=== PATIENT | male | born 1975 | race Caucasian/White ===

== ENCOUNTER → 2017-02-17 | Outpatient (CLI) | payer MEDICAID ==
--- NOTE | 2017-02-17 15:24 | US ---
EXAMINATION TYPE: US venous doppler duplex LE BI DATE OF EXAM: 02/17/2017 2:43 PM COMPARISON: NONE CLINICAL HISTORY: 41-year-old male Muscle Weakness M62.81,R06.09 Dyspnea. Muscle weakness SIDE PERFORMED: Bilateral TECHNIQUE: The lower extremity deep venous system is examined utilizing real time linear array sonog melany with graded compression, doppler sonography and color-flow sonography. FINDINGS: VESSELS IMAGED: External Iliac Vein (EIV) Common Femoral Vein Deep Femoral Vein Greater Saphenous Vein * Femoral Vein Popliteal Vein Small Saphenous Vein * Proximal Calf Veins (* superficial vessels) Right Leg: Appears negative for DVT Left Leg: Appears negative for DVT IMPRESSION: No evidence for DVT within the bilateral lower extremities imaged from the groin to the upper calves.
--- NOTE | 2017-02-18 08:27 | ECHOF ---
Referral Reason:Muscle Weakness M62.81,R06.09 Dyspnea MEASUREMENTS -------- HEIGHT: 177.8 cm WEIGHT: 81.6 kg BP: 141/86 RVIDd: 3.2 cm (< 3.3) IVSd: 1.2 cm (0.6 - 1.1) LVIDd: 5.1 cm (3.9 - 5.3) LVPWd: 1.2 cm (0.6 - 1.1) IVSs: 1.7 cm LVIDs: 3.7 cm LVPWs: 1.7 cm LAESV Index (A-L): 23.15 ml/m Ao Diam: 3.4 cm (2.0 - 3.7) AV Cusp: 1.8 cm (1.5 - 2.6) LA Diam: 3.5 cm (2.7 - 3.8) MV EXCURSION: 22.907 mm (> 18.000) MV EF SLOPE: 155 mm/s (70 - 150) EPSS: 0.8 cm MV E Min: 0.86 m/s MV DecT: 234 ms MV A Min: 0.51 m/s MV E/A Ratio: 1.70 RAP: 5.00 mmHg RVSP: 15.42 mmHg FINDINGS -------- Resting bradycardia (HR<60bpm). This was a technically good study. The left ventricular size is normal. Left ventricular wall thickness is normal. Overall left ventricular systolic function is normal with, an EF between 60 - 65 %. The right ventricle is mildly enlarged. Normal LA size by volume 22+/-6 ml/m2. RA appears enlarged. The aortic valve is trileaflet, and appears structurally normal. No aortic stenosis or regurgitation. The mitral valve is normal. There is trace mitral regurgitation. Trace tricuspid regurgitation present. Right ventricular systolic pressure is normal at < 35 mmHg. There is no evidence of pulmonary hypertension. Trace/mild (physiologic) pulmonic regurgitation. The aortic root size is normal. Normal inferior vena cava with normal inspiratory collapse consistent with estimated right atrial pressure of 5 mmHg. The pericardium is normal. There is no pericardial effusion. CONCLUSIONS -------- 1. Resting bradycardia (HR<60bpm). 2. Trace tricuspid regurgitation present. 3. Right ventricular systolic pressure is normal at < 35 mmHg. 4. There is no evidence of pulmonary hypertension. 5. Trace/mild (physiologic) pulmonic regurgitation. 6. The aortic root size is normal. 7. There is no pericardial effusion. 8. This was a technically good study. 9. The left ventricular size is normal. 10. Overall left ventricular systolic function is normal with, an EF between 60 - 65 %. 11. The right ventricle is mildly enlarged. 12. Normal LA size by volume 22+/-6 ml/m2. 13. RA appears enlarged. 14. The aortic valve is trileaflet, and appears structurally normal. No aortic stenosis or regurgitation. 15. There is trace mitral regurgitation. AUTO BODY REPAIR TEACHER: Eros Nichols RDCS
--- NOTE | 2017-02-19 10:31 | P.ARTDOP ---
Arterial Doppler LOWER EXTREMITY ARTERIAL DOPPLER: DATE OF SERVICE: 02/17/2017 Reason for study: Lower extremity weakness. Doppler waveforms: Multiphasic bilaterally throughout. Pulse volume recording: Normal configuration. Pressure gradients: None. Ankle-brachial indices: Greater than 1 bilaterally. Toe pressures: 95 on the right, 124 on the left Impression: Normal study.
== END | disposition home or self-care (01) ==
LOC: RADUSWWP 14:10
PROVIDERS: ATTEND Family Medicine
DX: I37.1 Nonrheumatic pulmonary valve insufficiency (principal); M62.81 Muscle weakness (generalized); R06.09 Other forms of dyspnea; R53.83 Other fatigue; R53.81 Other malaise; R42 Dizziness and giddiness
CPT/HCPCS: 93306; 93923; 93970

== ENCOUNTER 2019-08-02 09:08 | Day surgery (SDC) | payer MEDICAID ==
[2019-07-28 15:42] VITALS: BMI 25.1
[~2019-08-02 09:08] MED LIST: LACTATED RINGERS 1,000 ML IV SCH; LIDOCAINE 1% (10MG/ML) FOR IV START INTRADERMA PRN
[2019-08-02 09:20] VITALS: TEMP 97.6
[2019-08-02] MEDS ORDERED: LACTATED RINGERS 1,000 ML IV ONE (09:20)
[2019-08-02] MEDS ORDERED: ONDANSETRON 4 MG/2 ML VIAL ONE (10:29)
[2019-08-02] MEDS ORDERED: PROPOFOL 10 MG/ML 20 ML VIAL IV ONE (10:29)
[2019-08-02] MEDS ORDERED: MIDAZOLAM 2 MG/2 ML VIAL ONE (10:29)
[2019-08-02] MEDS ORDERED: fentaNYL (PF) 50 MCG/ML 2 ML AMP ONE (10:29)
--- NOTE | 2019-08-02 10:38 | P.GSHP ---
History of Present Illness H&P Date: 08/02/19 Chief Complaint: GERD 44-year-old male here today for upper endoscopy. Patient chronic reflux. Some improvement with prescription antiacids. Mild dysphasia at times. By history it sounds like the father may have had Cano's esophagus. Past Medical History Past Medical History: GERD/Reflux, Hypertension History of Any Multi-Drug Resistant Organisms: None Reported Past Surgical History: No Surgical Hx Reported Additional Past Anesthesia/Blood Transfusion Reaction / Comment(s): FIRST ANESTHETIC Smoking Status: Former smoker - Past Family History Mother Family Medical History: No Reported History Medications and Allergies Home Medications Medication Instructions Recorded Confirmed Type Lisinopril [Prinivil] 10 mg PO DAILY 05/17/15 07/28/19 History Pantoprazole Sodium [Protonix] 40 mg PO DAILY 07/28/19 07/28/19 History Allergies Allergy/AdvReac Type Severity Reaction Status Date / Time No Known Allergies Allergy Verified 07/28/19 15:28 Surgical - Exam Vital Signs Temp Pulse Resp BP Pulse Ox 97.6 F 52 L 18 137/79 100 08/02/19 09:18 08/02/19 09:18 08/02/19 09:18 08/02/19 09:18 08/02/19 09:18 Physical exam: General: Well-developed, well-nourished HEENT: Normocephalic, sclerae nonicteric Abdomen: Nontender, nondistended Extremities: No edema Neuro: Alert and oriented Assessment and Plan (1) GERD (gastroesophageal reflux disease) Narrative/Plan: Will proceed with upper endoscopy. Current Visit: Yes Status: Acute Code(s): K21.9 - GASTRO-ESOPHAGEAL REFLUX DISEASE WITHOUT ESOPHAGITIS SNOMED Code(s): 103243390
--- NOTE | 2019-08-02 10:44 | P.PCN ---
Date of Procedure: 08/02/19 Procedure(s) Performed: Preoperative Dx: Chronic reflux Postoperative Dx: Mild gastritis, mild distal esophagitis Procedure: EGD with Bx Anesthesia: Sedation Endoscopist: Dr. Schaefer Specimens: Antrum, GE junction Endoscopic Procedure: The patient was on the endoscopy table in the left decubitus position. The Olympus gastroscope was inserted into the oropharynx and passed under direct visualization to the region of the third portion of the duodenum. From that point the scope was slowly withdrawn inspecting all surfaces carefully. There were no neoplastic inflammatory or polypoid lesions throughout the duodenum. The pylorus was widely patent. The stomach was carefully inspected. There was mild gastritis present. A biopsy of the antrum took place to rule out H. pylori. Retroflexion revealed a normal hiatus. The esophagus was then carefully examined. There was minimal inflammatory changes right at the GE junction itself. A single biopsy was taken. The remainder the esophagus appear normal. The patient was then taken to the recovery room in stable condition per anesthesia guidelines. Recommendations: Await biopsy results. Resume antiacid therapy.
[2019-08-02 10:50] VITALS: RESP 16
[2019-08-02 11:09] VITALS: BP 121/77; PULSE 51
== END 2019-08-02 11:32 | disposition home or self-care (01) ==
LOC: ORWHC2ENDO 09:08
PROVIDERS: ATTEND Surgery
DX: K29.50 Unspecified chronic gastritis without bleeding (principal); K21.0 Gastro-esophageal reflux disease with esophagitis; I10 Essential (primary) hypertension; Z79.899 Other long term (current) drug therapy; Z87.891 Personal history of nicotine dependence
CPT/HCPCS: 88305; 43239; J2250; J2405; J3010; J2704

== ENCOUNTER → 2021-03-19 | Outpatient (CLI) | payer MEDICAID ==
--- NOTE | 2021-03-19 16:10 | XR ---
EXAMINATION TYPE: XR lumbar spine 2 or 3V DATE OF EXAM: 03/19/2021 CLINICAL HISTORY: Pain 3 weeks TECHNIQUE: Frontal, lateral, and coned-down lateral images of the lumbar spine are obtained. COMPARISON: None FINDINGS: There are 5 lumbar type vertebral bodies identified. The lumbar spine shows satisfactory alignment without evidence of acute fracture or dislocation. Vertebral body heights and disk space he ights are within normal limits. Lower lumbar facet arthropathy is present. The overlying soft tissue appears unremarkable. IMPRESSION: Lower lumbar facet arthropathy is present.
== END | disposition home or self-care (01) ==
LOC: RADXRMAIN 13:03
PROVIDERS: ATTEND Family Medicine
DX: M47.816 Spondylosis without myelopathy or radiculopathy, lumbar region (principal)
CPT/HCPCS: 72100

== ENCOUNTER 2023-11-06 13:29 | Emergency (ER) | payer MEDICAID ==
--- NOTE | 2023-11-06 14:53 | ED ---
Chest Pain HPI - General Chief Complaint: Chest Pain Stated Complaint: Heart palp. Time Seen by Provider: 11/06/23 13:55 Source: patient, RN notes reviewed, old records reviewed Mode of arrival: ambulatory Limitations: no limitations - History of Present Illness Initial Comments: This is a 48-year-old male to the ER for evaluation today. Patient was today for evaluation of chest pain. Patient has persistent chest pain here in the ER with severe hypertension. MD Complaint: chest pain -: days(s) Onset: during rest, during exertion Pain Location: substernal, left chest Pain Radiation: none Severity: moderate Severity scale (1-10): 4 Quality: aching Consistency: constant Improves With: nothing Context: recent illness Anginal Symptoms: sense of impending doom Other Symptoms: palpitations Treatments Prior to Arrival: none - Related Data Home Medications Medication Instructions Recorded Confirmed lisinopriL [Prinivil] 10 mg PO DAILY 05/17/15 11/06/23 Test-Boost Max Supplement 2 cap PO DAILY 11/06/23 11/06/23 Allergies Allergy/AdvReac Type Severity Reaction Status Date / Time No Known Allergies Allergy Verified 11/06/23 15:09 Review of Systems ROS Statement: Those systems with pertinent positive or pertinent negative responses have been documented in the HPI. ROS Other: All systems not noted in ROS Statement are negative. EKG Findings - EKG Comments: EKG Findings:: EKG is sinus bradycardia 55 MD 157 QRS 102 QTc 421 - EKG Results: EKG: interpreted by LENARD Past Medical History Past Medical History: GERD/Reflux, Hypertension History of Any Multi-Drug Resistant Organisms: None Reported Past Surgical History: No Surgical Hx Reported Additional Past Anesthesia/Blood Transfusion Reaction / Comment(s): FIRST ANESTHETIC Past Psychological History: No Psychological Hx Reported Past Alcohol Use History: Occasional Past Drug Use History: None Reported - Past Family History Mother Family Medical History: No Reported History General Exam Limitations: no limitations General appearance: alert, in no apparent distress Head exam: Present: atraumatic, normocephalic, normal inspection Eye exam: Present: normal appearance, PERRL, EOMI. Absent: scleral icterus, conjunctival injection, periorbital swelling ENT exam: Present: normal exam, mucous membranes moist Neck exam: Present: normal inspection. Absent: tenderness, meningismus, lymphadenopathy Respiratory exam: Present: normal lung sounds bilaterally. Absent: respiratory distress, wheezes, rales, rhonchi, stridor Cardiovascular Exam: Present: regular rate, normal rhythm, normal heart sounds. Absent: systolic murmur, diastolic murmur, rubs, gallop, clicks GI/Abdominal exam: Present: soft, normal bowel sounds. Absent: distended, tenderness, guarding, rebound, rigid Extremities exam: Present: normal inspection, full ROM, normal capillary refill. Absent: tenderness, pedal edema, joint swelling, calf tenderness Back exam: Present: normal inspection Neurological exam: Present: alert, oriented X3, CN II-XII intact Psychiatric exam: Present: normal affect, normal mood Skin exam: Present: warm, dry, intact, normal color. Absent: rash Course Vital Signs 11/06/23 11/06/23 11/06/23 13:44 15:45 17:09 Temperature 98.3 F 97.3 F L Pulse Rate 60 58 L 51 L Respiratory 20 18 16 Rate Blood Pressure 141/86 148/91 147/85 O2 Sat by Pulse 98 99 100 Oximetry - Reevaluation(s) Reevaluation #1: Medical record is reviewed Reevaluation #2: Patient symptoms unchanged Reevaluation #3: Patient informed of results and questions answered Studies Chest x-ray is negative for acute disease Reevaluation #4: Was pt. sent in by a medical professional or institution (Dr. PA, BARREL WATERER, urgent care, hospital, or care home...) When possible be specific @ -no Did you speak to anyone other than the patient for history (EMS, parent, family, police, friend...)? What history was obtained from this source @ -no Did you review nursing and triage notes (agree or disagree)? Why? @ -agree Are old charts reviewed (outside hosp., previous admission, EMS record, old EKG, old radiological studies, urgent care reports/EKG's, care home records)? Report findings @ -yes Differential Diagnosis (chest pain, altered mental status, abdominal pain women, abdominal pain men, vaginal bleeding, weakness, fever, dyspnea, syncope, headache, dizziness, GI bleed, back pain, seizure, CVA, palpatations, mental health, musculoskeletal)? @ -prior EKG interpreted by me (3pts min.). @ -yes X-rays interpreted by me (1pt min.). @ -yes negative for acute disease CT interpreted by me (1pt min.). @ -no U/S interpreted by me (1pt. min.). @ -no What testing was considered but not performed or refused? (CT, X-rays, U/S, labs)? Why? @ -none What meds were considered but not given or refused? Why? @ -none Did you discuss the management of the patient with other professionals (professionals i.e. Dr., PA, BARREL WATERER, lab, RT, psych nurse, social work assistant, lead infrastructure architect, teacher, [place] police officer, family independence case manager)? Give summary @ -no Was smoking cessation discussed for >3mins.? @ -no Was critical care preformed (if so, how long)? @ -no Were there social determinants of health that impacted care today? How? (Homelessness, low income, unemployed, alcoholism, drug addiction, transportation, low edu. Level, literacy, decrease access to med. care, prison, rehab)? @ -none Was there de-escalation of care discussed even if they declined (Discuss DNR or withdrawal of care, Hospice)? DNR status @ -no What co-morbidities impacted this encounter? (DM, HTN, Smoking, COPD, CAD, Cancer, CVA, ARF, Chemo, Hep., AIDS, mental health diagnosis, sleep apnea, morbid obesity)? @ -none Was patient admitted / discharged? Hospital course, mention meds given and route, prescriptions, significant lab abnormalities, going to OR and other pertinent info. @ - 48 male to the ER for evaluation of chest pain with no acute cause of chest pain found here in the ER. Patient has normal testing normal labs normal EKG normal x-ray and patient can be discharged home Discharge Undiagnosed new problem with uncertain prognosis? @ -no Drug Therapy requiring intensive monitoring for toxicity (Heparin, Nitro, Insulin, Cardizem)? @ -no Were any procedures done? @ -no Diagnosis/symptom? @ -Chest pain Acute, or Chronic, or Acute on Chronic? @ -Acute Uncomplicated (without systemic symptoms) or Complicated (systemic symptoms)? @ -Complicated Side effects of treatment? @ -no Exacerbation, Progression, or Severe Exacerbation? @ -exacerbation Poses a threat to life or bodily function? How? (Chest pain, USA, PA, pneumonia, PE, COPD, DKA, ARF, appy, cholecystitis, CVA, Diverticulitis, Homicidal, Suicidal, threat to staff... and all critical care pts) @ -yes with chest pain Reevaluation #5: Differential Chest Pain: Stable Angina, Unstable Angina, STEMI, NSTEMI Aortic Dissection, Pneumothorax, Musculoskeletal, Esophageal Spasm GERD, Cholecystitis, Pancreatitis, Zoster, this is not meant to be an all-inclusive list. Chest Pain MDM - MDM 48 male to the ER for evaluation of chest pain with no acute cause of chest pain found here in the ER. Patient has normal testing normal labs normal EKG normal x-ray and patient can be discharged home Disposition Clinical Impression: Chest pain Disposition: HOME SELF-CARE Condition: Undetermined Instructions (If sedation given, give patient instructions): Chest Pain (ED) Is patient prescribed a controlled substance at d/c from ED?: No Referrals: Hiram Chao DO [Primary Care Provider] - 1-2 days Time of Disposition: 16:50
[2023-11-06 14:57] LABS: Basophils % (A) 0 %; Eosinophils % (A) 1 %; HCT 42.4 % (39.0-53.0); HGB 15.2 gm/dL (13.0-17.5); Lymphocytes # (A) 1.1 k/uL (1.0-4.8); Lymphocytes % (A) 16 %; MCH 33.8 pg (25.0-35.0); MCHC 35.9 g/dL (31.0-37.0); MCV 94.1 fL (80.0-100.0); Mean Platelet Volume 8.2; Monocytes # (A) 0.4 k/uL (0-1.0); Monocytes % (A) 5 %; Neutrophils # (A) 5.4 k/uL (1.3-7.7); Neutrophils % (A) 77 %; Platelet Count 211 k/uL (150-450); RDW 12.8 % (11.5-15.5)
[2023-11-06 15:00] LABS: Partial Thromboplastin Time 24.4 sec (22.0-30.0)
[2023-11-06 15:01] LABS: ALT 23 U/L (4-49); African American GFR (CKD) >90 (>60 ml/min/1.73 sqM); Albumin 4.6 g/dL (3.5-5.0); Anion Gap 6 mmol/L; Blood Urea Nitrogen 18 mg/dL (9-20); Calcium 9.7 mg/dL (8.4-10.2); Carbon Dioxide 23 mmol/L (22-30); Chloride 109 mmol/L (98-107); Glucose 83 mg/dL (74-99); Lipase 241 U/L (23-300); Non-African American GFR(CKD) >90 (>60 ml/min/1.73 sqM); Sodium 138 mmol/L (137-145)
[2023-11-06 15:09] LABS: NT-Pro-B-Type Natriuretic Pept <20 pg/mL
[2023-11-06 15:10] LABS: AST 30 U/L (17-59); Alkaline Phosphatase 52 U/L (38-126); Magnesium 1.9 mg/dL (1.6-2.3); Potassium 4.5 mmol/L (3.5-5.1)
--- NOTE | 2023-11-06 15:30 | XR ---
EXAMINATION TYPE: XR chest 1V portable DATE OF EXAM: 11/06/2023 Comparison: 05/17/2015 Clinical History: 48-year-old male with chest pain Findings: Heart upper limits of normal in size, possibly accentuated due to AP technique. Aorta and pulmonary v asculature within normal limits. No consolidation or pleural effusion. Impression: Borderline heart size. No acute cardiopulmonary process.
[2023-11-06 17:10] VITALS: BP 147/85; PULSE 51; RESP 16; TEMP 97.3
== END 2023-11-06 17:10 | disposition home or self-care (01) ==
LOC: EC 13:29
DX: R07.89 Other chest pain (principal); R00.1 Bradycardia, unspecified
CPT/HCPCS: 36415; 71045; 80053; 83690; 83735; 83880; 84484; 85025; 85610; 85730; 93005; 99285

== ENCOUNTER 2024-08-19 07:10 | Day surgery (SDC) | payer MEDICAID ==
[2024-08-19 07:28] VITALS: TEMP 98
[2024-08-19] MEDS: LACTATED RINGERS 1,000 ML IV SCH (07:30)
[2024-08-19] MEDS ORDERED: PROPOFOL 10 MG/ML 20 ML VIAL IV ONE (07:43)
[2024-08-19] MEDS ORDERED: LIDOCAINE 1% INJ 10MG/ML (20 ML MDV) ONE (07:43)
[2024-08-19] MEDS ORDERED: MIDAZOLAM 2 MG/2 ML VIAL ONE (07:43)
--- NOTE | 2024-08-19 07:59 | P.PCN ---
Date of Procedure: 08/19/24 Preoperative Diagnosis: Screening Postoperative Diagnosis: Diverticulosis Procedure(s) Performed: Colonoscopy Anesthesia: MIKAEL Surgeon: Denae Michelle Pathology: none sent Condition: stable Disposition: same day Indications for Procedure: 49-year-old male presents today for screening colonoscopy. He has never had colonoscopy previously. Denies blood in his stool. No family history of colon cancer. Risks, benefits and alternatives were provided to the patient. All questions answered. Operative Findings: Diverticulosis Description of Procedure: The patient was brought to the endoscopy suite and placed in left lateral decubitus position and adequate sedation was achieved using conscious sedation. Digital rectal exam was performed and mild internal hemorrhoids were palpated. An endoscope was then placed in the rectum and advanced to the cecum as identified by landmarks including the appendiceal orifice and the ileocecal valve. The prep was good. The colonoscope was then slowly withdrawn, examining for any mucosal abnormalities. The cecum, ascending, transverse, descending and sigmoid colon were visualized adequately. There were no large neoplastic lesions noted throughout the colon. No obvious polyps noted throughout the col on. Mild amount of diverticulosis noted. Hemostasis was maintained. Retroflexion was performed in the rectum and internal hemorrhoids. Excess air was removed, the colonoscope withdrawn and the procedure terminated. The patient was then transferred to the recovery unit in stable condition. Repeat colonoscopy should be performed in 10 years.
[2024-08-19 08:16] VITALS: BP 113/70; PULSE 55; RESP 16
== END 2024-08-19 08:47 | disposition home or self-care (01) ==
LOC: ORWHC2ENDO 07:10
PROVIDERS: ATTEND Surgery
DX: Z12.11 Encounter for screening for malignant neoplasm of colon (principal); K57.30 Diverticulosis of large intestine without perforation or abscess without bleeding; K64.8 Other hemorrhoids
CPT/HCPCS: 45378; J2250; J2003; J2704